=== PATIENT | male | born 1950 | race Caucasian/White ===

== ENCOUNTER 2023-09-28 19:33 | Emergency (ER) | payer MEDICARE, OTHER, SELFPAY ==
[2023-09-28 19:40] VITALS: BP 147/79; PULSE 64; RESP 16; TEMP 37.6; O2SAT 98
--- NOTE | 2023-09-28 19:57 | ED.ARRPALP ---
HPI - Arrhythmia/Palpitations General Chief Complaint: Arrhythmia/Palpitations Stated Complaint: Heart palpitations, heart pain Time Seen by Provider: 09/28/23 19:49 History of Present Illness HPI narrative: Patient is 73-year-old gentleman who comes in today with occasional skipped beat Of his heart. He has a history of PVCs and is been missing some doses of metoprolol. He is also under lot of stress as his has a fractured hip his son recently and he lost a horse. Patient has had no chest pain no shortness of breath orthopnea no PND. Symptoms have been present off and on for the last 7 months. He has EKGs done here at the ER showing PVCs with a PVC every 4th or 5th beat. This seems to line up with his symptoms. No other significant symptoms have been noted. Patient is quite anxious at this time. Related Data Home Medications Medication Instructions Recorded Confirmed metoprolol tartrate 25 mg tablet 25 mg PO BID 09/28/23 09/28/23 Allergies Allergy/AdvReac Type Severity Reaction Status Date / Time No Known Drug Allergies Allergy Verified 09/28/23 19:44 Review of Systems Status of ROS: Reports: 10 or more systems reviewed and unremarkable except as noted in History and below [facility] Medical History (Updated 09/28/23 @ 20:02 by Francis Trammell MD) Unifocal PVCs ?I49.3 - Ventricular premature depolarization (ICD-10) Exam Narrative: Exam Narrative: head is normocephalic general he is in no acute distress HEENT exam is unremarkable heart is regular no rubs clicks gallops or murmurs. Lungs are clear no wheezes crackles rhonchi abdomen soft positive bowel sounds extremities no cyanosis no edema neurologic cranial nerves 2-12 grossly intact no focal defects. Const: Vital Signs, click to edit/add: Vital Signs - 24 hr 09/28/23 19:40 Temperature 99.6 F Pulse Rate [Pulse Oximeter] 64 Respiratory Rate 16 Blood Pressure [Ri ght Upper Arm] 147/79 H Pulse Oximetry 98 Oxygen Delivery Me thod Room Air Course Course ED Course: Patient seen and examined. Vital Signs Vital signs: Initial Vital Signs Temperature 99.6 F 09/28/23 19:40 Temperature Source Temporal Artery Scan 09/28/23 19:40 Pulse Rate 64 09/28/23 19:40 Respiratory Rate 16 09/28/23 19:40 Blood Pressure 147/79 H 09/28/23 19:40 Blood Pressure Mean 101 09/28/23 19:40 Blood Pressure Position Supine 09/28/23 19:40 Pulse Oximetry 98 09/28/23 19:40 Oxygen Delivery Method Room Air 09/28/23 19:40 Vital Signs Temperature 99.6 F 09/28/23 19:40 Pulse Rate 64 09/28/23 19:40 Respiratory Rate 16 09/28/23 19:40 Blood Pressure 147/79 H 09/28/23 19:40 Pulse Oximetry 98 09/28/23 19:40 Oxygen Delivery Method Room Air 09/28/23 19:40 Temperature 99.6 F 09/28/23 19:40 Pulse Rate 64 09/28/23 19:40 Respiratory Rate 16 09/28/23 19:40 Blood Pressure 147/79 H 09/28/23 19:40 Pulse Oximetry 98 09/28/23 19:40 Oxygen Delivery Method Room Air 09/28/23 19:40 MDM - Arrhythmia/Palpitations MDM Narrative Medical decision making narrative: Patient is a 73-year-old gentle with history of PVCs who has been having difficult time remembering to take his metoprolol. Also under lot of stress. I did offer reassurace. I do not believe further evaluation is indicated. He will be more compliant with his metoprolol and [facility] at which time I did recommend echocardiogram. No other issues noted. Differential Diagnosis Differential diagnosis: Likely palpitations, anxiety, sinus tachycardia, artial fibrillation, artial flutter, ventricular premature beats, supraventricular tachycardia, ventricular tachycardia and WPW Discharge Plan Discharge Clinical Impression: Frequent PVCs Patient Disposition: Home, Self-Care Condition: Stable Instructions: Premature Ventricular Contractions (ED) Additional Instructions: improve hydration remember to take your medication [facility] to [facility]. Activity Level: No Restrictions Discharge Diet: Regular Prescriptions: No Action metoprolol tartrate 25 mg tablet 25 mg PO BID Stand Alone Forms: [employer] Info Instructions
== END 2023-09-28 20:26 | disposition home or self-care (01) ==
LOC: ED 20:11
PROVIDERS: Emergency Provider Internal Medicine
DX: I49.3 Ventricular premature depolarization (principal)
CPT/HCPCS: 99283